=== PATIENT | male | born 1935 | race Caucasian/White ===

== ENCOUNTER 2017-07-20 13:37 | Inpatient (IN) | payer MEDICARE ==
[~2017-07-20] VITALS: Ht 180.3 cm; Wt 111.4 kg
[2017-07-20] VITALS (8 sets, daily range): BP systolic 123–207; BP diastolic 57–92; PULSE 54–99; RESP 21–30; TEMP 97.5–98.2; O2SAT 96–99
[~2017-07-20 13:37] MED LIST: ALPHALIPOIC ACID; ASPI81 PO; ATOR10 PO; B 12; COQ10; FISHOIL; FOLI800T12 PO; GLUCTAB47 PO; L CARNITINE; MECL25 PO; MSM PO; SAWPOW; TAB-TAB PO; TOPR25TA2 PO; TYLE3 PO; VITA500L4 PO; [UNRECOGNIZED DRUG - OTHER]; [UNRECOGNIZED DRUG - OTHER]
[2017-07-20] MEDS ORDERED: SODIUM CHLORIDE 0.9% FLUSH 10 ML FLUSH IVF PRN (14:00)
[2017-07-20] MEDS ORDERED: NITROGLYCERIN 2% OINT 1 GM PACKET TOPICAL ONE (14:00)
[2017-07-20] MEDS ORDERED: FUROSEMIDE 40 MG/4 ML VIAL IVP ONE (14:00)
--- NOTE | 2017-07-20 14:02 | PD ---
HPI Chief Complaint: shortness of breath Time Seen by Provider: 13:58 Travel History International Travel<30 days: No Contact w/Intl Traveler<30days: No Traveled to known affect area: No History of Present Illness HPI 82-year-old male patient with history of previous SD, CAD status post CABG, hypertension, presents to the ER today brought in by EMS for several weeks' history of worsening shortness of breath and dyspnea on exertion which worsens when he lays down. He denies any recent fevers, chest pains, or other symptoms. He initially had saturations in the high 80s when EMS got there, was in respiratory distress, and EMS to try a nebulizer on him and gave him oxygen, which improved his saturations to 99% now. He is still in significant respiratory distress. Modifying Factors: None Associated Signs & Symptoms: Dyspnea on exertion, shortness of breath worsening over the course of several weeks Risk Factors: None PFSH Past Medical History Cardiac Catheterization: Yes Cerebrovascular Accident: Yes Coronary Artery Disease: Yes Diminished Hearing: No Genitourinary: Yes (PROSTATE ENLARGEMENT) Hypertension: Yes Past Surgical History Coronary Artery Bypass Graft: Yes Social History Alcohol Use: No Tobacco Use: No Substance Use: No Allergies-Medications (Allergen,Severity, Reaction): Coded Allergies: erythromycin base (Unverified Allergy, Mild, 07/20/17) phenytoin (Unverified Allergy, Mild, 07/20/17) Reported Meds & Prescriptions Reported Meds & Active Scripts Active Reported Toprol XL (Metoprolol Succinate) 25 Mg Tab 25 Mg PO DAILY Lipitor (Atorvastatin Calcium) 10 Mg Tab 10 Mg PO HS Aspirin 81 (Aspirin) 81 Mg Tabdr 81 Mg PO DAILY Review of Systems Except as stated in HPI: all other systems reviewed are Neg Physical Exam Narrative GENERAL: Well-developed elderly white male patient currently in moderate respiratory distress per awake and oriented 3. SKIN: Focused skin assessment warm/dry. HEAD: Atraumatic. Normocephalic. EYES: Pupils equal and round. No scleral icterus. No injection or drainage. ENT: No nasal bleeding or discharge. Mucous membranes pink and moist. NECK: Trachea midline. No JVD. CARDIOVASCULAR: Regular rate and rhythm. No murmur appreciated. RESPIRATORY: Notable accessory muscle use. Decreased throughout. Breath sounds equal bilaterally. GASTROINTESTINAL: Abdomen soft, non-tender, nondistended. Hepatic and splenic margins not palpable. MUSCULOSKELETAL: No obvious deformities. No clubbing. No cyanosis. Bilateral pitting edema the legs. NEUROLOGICAL: Awake and alert. No obvious cranial nerve deficits. Motor grossly within normal limits. Normal speech. PSYCHIATRIC: Appropriate mood and affect; insight and judgment normal. Data Data Last Documented VS Vital Signs Date Time Temp Pulse Resp B/P (MAP) Pulse Ox O2 Delivery O2 Flow Rate FiO2 07/20/17 16:42 99 24 183/85 (117) 99 Nasal Cannula 2.00 07/20/17 14:06 98.2 Orders Orders Complete Blood Count With Diff (07/20/17 13:59) Comprehensive Metabolic Panel (07/20/17 13:59) B-Type Natriuretic Peptide (07/20/17 13:59) D-Dimer (07/20/17 13:59) Act Partial Throm Time (Ptt) (07/20/17 13:59) Prothrombin Time / Inr (Pt) (07/20/17 13:59) Ckmb (Isoenzyme) Profile (07/20/17 13:59) Troponin I (07/20/17 13:59) Blood Culture (07/20/17 13:59) Iv Access Insert/Monitor (07/20/17 13:59) Electrocardiogram (07/20/17 13:59) Ecg Monitoring (07/20/17 13:59) Oximetry (07/20/17 13:59) Oxygen Administration (07/20/17 13:59) Chest, Single Ap (07/20/17 13:59) Sodium Chloride 0.9% Flush (Ns Flush) (07/20/17 14:00) Furosemide Inj (Lasix Inj) (07/20/17 14:00) Nitroglycerin 2% Oint (Nitroglycerin 2% (07/20/17 14:00) CKMB (07/20/17 14:10) CKMB% (07/20/17 14:10) Ct Pulmonary Angiogram (07/20/17 15:31) Us Leg Venous Doppler Bilat (07/20/17 15:31) Admit Order (Ed Use Only) (07/20/17 17:08) Labs Laboratory Tests Test 07/20/17 14:10 White Blood Count 7.0 TH/MM3 Red Blood Count 5.24 MIL/MM3 Hemoglobin 15.5 GM/DL Hematocrit 47.5 % Mean Corpuscular Volume 90.6 FL Mean Corpuscular Hemoglobin 29.6 PG Mean Corpuscular Hemoglobin Concent 32.7 % Red Cell Distribution Width 15.0 % Platelet Count 105 TH/MM3 Mean Platelet Volume 10.0 FL Neutrophils (%) (Auto) 80.3 % Lymphocytes (%) (Auto) 11.4 % Monocytes (%) (Auto) 5.6 % Eosinophils (%) (Auto) 1.9 % Basophils (%) (Auto) 0.8 % Neutrophils # (Auto) 5.6 TH/MM3 Lymphocytes # (Auto) 0.8 TH/MM3 Monocytes # (Auto) 0.4 TH/MM3 Eosinophils # (Auto) 0.1 TH/MM3 Basophils # (Auto) 0.1 TH/MM3 CBC Comment DIFF FINAL Differential Comment Prothrombin Time 12.3 SEC Prothromb Time International Ratio 1.1 RATIO Activated Partial Thromboplast Time 26.0 SEC D-Dimer Quantitative (PE/DVT) 0.88 MG/L FEU Blood Urea Nitrogen 28 MG/DL Creatinine 1.87 MG/DL Random Glucose 106 MG/DL Total Protein 7.1 GM/DL Albumin 3.9 GM/DL Calcium Level 9.3 MG/DL Alkaline Phosphatase 29 U/L Aspartate Amino Transf (AST/SGOT) 26 U/L Alanine Aminotransferase (ALT/SGPT) 39 U/L Total Bilirubin 0.7 MG/DL Sodium Level 142 MEQ/L Potassium Level 4.7 MEQ/L Chloride Level 111 MEQ/L Carbon Dioxide Level 23.3 MEQ/L Anion Gap 8 MEQ/L Estimat Glomerular Filtration Rate 35 ML/MIN Total Creatine Kinase 103 U/L Creatine Kinase MB 3.7 NG/ML Troponin I LESS THAN 0.02 NG/ML B-Type Natriuretic Peptide 631 PG/ML MDM Medical Decision Making Medical Screen Exam Complete: Yes Emergency Medical Condition: Yes Medical Record Reviewed: Yes Interpretation(s) EKG shows normal sinus rhythm at a rate of 79 bpm with frequent PVCs. No signs of acute ST-T changes. Laboratory Tests Test 07/20/17 14:10 Platelet Count 105 TH/MM3 (150-450) Neutrophils (%) (Auto) 80.3 % (16.0-70.0) Lymphocytes # (Auto) 0.8 TH/MM3 (1.0-4.8) Prothrombin Time 12.3 SEC (9.8-11.6) D-Dimer Quantitative (PE/DVT) 0.88 MG/L FEU (0.00-0.50) Blood Urea Nitrogen 28 MG/DL (7-18) Creatinine 1.87 MG/DL (0.60-1.30) Alkaline Phosphatase 29 U/L (45-117) Chloride Level 111 MEQ/L (98-107) Estimat Glomerular Filtration Rate 35 ML/MIN (>89) Creatine Kinase MB 3.7 NG/ML (0.5-3.6) Troponin I LESS THAN 0.02 NG/ML B-Type Natriuretic Peptide 631 PG/ML (0-100) Last 24 hours Impressions Lower Extremity Ultrasound 07/20/17 1531 Signed Impressions: Service Date/Time: Thursday, July 20, 2017 15:42 - CONCLUSION: Normal examination. Diffuse subcutaneous edema. Jose Maloney MD Chest X-Ray 07/20/17 1359 Signed Impressions: Service Date/Time: Thursday, July 20, 2017 14:23 - CONCLUSION: Mild cardiomegaly status post CABG. Lungs are grossly clear. Jose Maloney MD Differential Diagnosis Short of breath, dyspnea on exertion: CHF new onset versus pneumonia versus PE versus COPD Narrative Course Exam concerning for CHF, BNP is 600 and chest x-ray and leg swelling is also concerning for CHF. Ultrasound shows no signs of DVT. Troponin is mildly elevated although patient is not having chest pain and this is likely secondary to CHF exacerbation although a non-ST elevation SD cannot be completely ruled out. He would need further evaluation by cardiology and cardiac enzyme follow- through. D-dimer is mildly elevated and CTA was ordered for further evaluation as well. Nitroglycerin and Lasix was given in the ER with some improvement in breathing. At this point, my plan would be to admit the patient for further treatment. Case was discussed with Dr. Caballero for admission. Diagnosis Primary Impression: CHF exacerbation Additional Impression: Elevated troponin Admitting Information Admitting Physician Requests: Admit Cem Guerrero MD Jul 20, 2017 14:02
[2017-07-20] MEDS ORDERED: TOPR25TA PO (14:08)
[2017-07-20] MEDS ORDERED: LIPI10TA PO (14:08)
[2017-07-20] MEDS ORDERED: ASPI1TAB57 PO (14:08)
--- NOTE | 2017-07-20 14:39 | RADRPT ---
EXAM DATE/TIME: 07/20/2017 14:23 [facility] COMPARISON: No previous studies available for comparison. INDICATIONS : Short of breath for two weeks MEDICAL HISTORY : None. SURGICAL HISTORY : CABG. ENCOUNTER: Initial ACUITY: 2 weeks PAIN SCORE: 0/10 LOCATION: Bilateral chest FINDINGS: A single view of the chest demonstrates the lungs to be symmetrically aerated without evidence of mas s, infiltrate or effusion. There are 6 intact sternal wires and clips suggesting CABG. The cardiomed iastinal contours are unremarkable except mild cardiac prominence. Osseous structures are intact. CONCLUSION: Mild cardiomegaly status post CABG. Lungs are grossly clear. Jose Maloney MD on July 20, 2017 at 14:36 Board Certified Radiologist. This report was verified electronically.
[2017-07-20 15:08] LABS: AUTOMATED NEUTROPHIL # 5.6 TH/MM3 (1.8-7.7); BASOPHIL # 0.1 TH/MM3 (0-0.2); BASOPHIL % 0.8 % (0.0-2.0); EOSINOPHIL # 0.1 TH/MM3 (0-0.4); EOSINOPHIL % 1.9 % (0.0-4.0); HEMATOCRIT 47.5 % (39.0-51.0); HEMO FLAGS DIFF FINAL; LYMPH % 11.4 % (9.0-44.0); LYMPHOCYTE # 0.8 TH/MM3 (1.0-4.8); MEAN CELL VOLUME 90.6 FL (80.0-100.0); MEAN CORPUSCULAR HEMOGLOBIN 29.6 PG (27.0-34.0); MEAN CORPUSCULAR HGB CONC 32.7 % (32.0-36.0); MONO % 5.6 % (0.0-8.0); NEUT % 80.3 % (16.0-70.0); PLATELET COUNT 105 TH/MM3 (150-450); RED BLOOD COUNT 5.24 MIL/MM3 (4.50-5.90)
[2017-07-20 15:22] LABS: INTERNATIONAL NORMALIZED RATIO 1.1 RATIO; PROTHROMBIN TIME - PATIENT 12.3 SEC (9.8-11.6)
[2017-07-20 15:25] LABS: ANION GAP 8 MEQ/L (5-15); AST (GOT) 26 U/L (15-37); BICARBONATE 23.3 MEQ/L (21.0-32.0); BLOOD UREA NITROGEN 28 MG/DL (7-18); CHLORIDE 111 MEQ/L (98-107); GLOMERULAR FILTRATION RATE 35 ML/MIN (>89); POTASSIUM 4.7 MEQ/L (3.5-5.1); SODIUM (NA) 142 MEQ/L (136-145)
[2017-07-20 15:31] LABS: ALKALINE PHOSPHATASE 29 U/L (45-117); ALT (GPT) 39 U/L (12-78); CREATINE KINASE 103 U/L (39-308); TOTAL BILIRUBIN ADULT 0.7 MG/DL (0.2-1.0)
[2017-07-20 15:43] LABS: CKMB 3.7 NG/ML (0.5-3.6)
--- NOTE | 2017-07-20 16:10 | RADRPT ---
EXAM DATE/TIME: 07/20/2017 15:42 [facility] COMPARISON: No previous studies available for comparison. INDICATIONS : Bilateral leg pain. MEDICAL HISTORY : Hypertension. CVA. Coronary artery disease. SURGICAL HISTORY : CABG. Cardiac catheterization. ENCOUNTER: Initial ACUITY: 1 day PAIN SCORE: 0/10 LOCATION: Bilateral legs. TECHNIQUE: Venous ultrasound of the left and right leg was performed from the inguinal ligament to the proximal calf. Real-time, color Doppler and spectral tracing, compression and augmentation techniques were us ed. FINDINGS: RIGHT LEG: There is normal compressibility of the deep venous system from the inguinal region to the proximal ca lf. No echogenic clot is seen in the lumen of the common femoral, femoral, popliteal, and posterior tibial veins. There is a normal response of the venous system to proximal and distal augmentation an d respiration. LEFT LEG: There is normal compressibility of the deep venous system from the inguinal region to the proximal ca lf. No echogenic clot is seen in the lumen of the common femoral, femoral, popliteal, and posterior tibial veins. There is a normal response of the venous system to proximal and distal augmentation an d respiration. CONCLUSION: Normal examination. Diffuse subcutaneous edema. Jose Maloney MD on July 20, 2017 at 16:08 Board Certified Radiologist. This report was verified electronically.
[2017-07-20] MEDS ORDERED: IODIXANOL 320 MG/ML 10 ML VIAL (for Rad CT) IVCONTRAST ONE (16:21)
--- NOTE | 2017-07-20 17:11 | RADRPT ---
EXAM DATE/TIME: 07/20/2017 16:21 [facility] COMPARISON: No previous studies available for comparison. INDICATIONS : Shortness of beath for a couple of weeks. IV CONTRAST: 50 cc Visipaque (iodixanol) IV RADIATION DOSE: 24.65 CTDIvol (mGy) MEDICAL HISTORY : Cerebrovascular disease. Cardiovascular disease Hypertension. SURGICAL HISTORY : CABG ENCOUNTER: Initial ACUITY: 2 weeks PAIN SCALE: 0/10 LOCATION: chest TECHNIQUE: Volumetric scanning of the chest was performed using a pulmonary embolism protocol MIP images were re constructed. Using automated exposure control and adjustment of the mA and/or kV according to patien t size, radiation dose was kept as low as reasonably achievable to obtain optimal diagnostic quality images. DICOM format image data is available electronically for review and comparison. Follow-up recommendations for detected pulmonary nodules are based at a minimum on nodule size and pa tient risk factors according to Fleischner Society Guidelines. FINDINGS: PULMONARY ARTERIES: No filling defects are seen in the pulmonary arteries through the segmental level. LUNGS: There is no consolidation or pneumothorax . No concerning pulmonary nodule is visualized. PLEURAE: There is no pleural thickening . Small bilateral pleural effusions. MEDIASTINUM: There is good visualization of the great vessels of the middle mediastinum. No evidence of mediastin al mass. There is hilar adenopathy on the right greater than the left of uncertain significance MUSCULOSKELETAL: Within normal limits for patient age. MISCELLANEOUS: The visualized upper abdominal organs demonstrate no acute abnormality. CONCLUSION: Small bilateral pleural effusions. Some reactive type lymph nodes within the right hilum. No evidence of pulmonary embolus with excellent opacification of the pulmonary vessels Jose Maloney MD on July 20, 2017 at 17:08 Board Certified Radiologist. This report was verified electronically.
--- NOTE | 2017-07-20 18:06 | HHI.HP ---
HPI Service [facility] Primary Care Physician No Primary Care Physician Admission Diagnosis CHF exacerbation/elevated troponin Diagnoses: Chief Complaint: Increasing shortness of breath Travel History International Travel<30 Days: No Contact w/Intl Traveler <30 Da: No Traveled to Known Affected Are: No History of Present Illness Patient is an 82-year-old male with primary medical history of HTN, history of GA, CAD, CABG 3 who came into the hospital with increasing shortness of breath. Patient states that for the past 2 weeks he has been short of breath but decided today to seek medical treatment because it's not getting better. Patient states that he has not been sleeping in his bed and that he gets dizzy laying down. With increased shortness of breath he has been sleeping in a recliner. Reports left lower extremity edema but attributes it to heel spurs. States that he is originally from [place] that he is being followed by PCP and [employer] however states that he has moved here, started to be [place] but now permanently living in here. [facility]. States all his providers have . States no change in diet or increased salt intake but admits to eating a lot. Denies use of oxygen at home. He continues to drive but states that he only walks short distances. But due to worsening shortness of breath he is unable to even move around he becomes winded. Denies pain and discomfort. Denies chest pain, palpitations, headaches, dizziness. Denies fevers, chills, n/v/d. Denies dysuria. Review of Systems Except as stated in HPI: all other systems reviewed are Neg Past Family Social History Past Medical History CAD CHF HTN GA Prostate enlargement Heel spurs, Left Pneumonia Past Surgical History CABG 3 Cardiac catheterization Appendectomy Reported Medications Reported Meds & Active Scripts Active Reported Toprol XL (Metoprolol Succinate) 25 Mg Tab 25 Mg PO DAILY Lipitor (Atorvastatin Calcium) 10 Mg Tab 10 Mg PO HS Aspirin 81 (Aspirin) 81 Mg Tabdr 81 Mg PO DAILY Allergies: Coded Allergies: erythromycin base (Unverified Allergy, Mild, 07/20/17) phenytoin (Unverified Allergy, Mild, 07/20/17) Active Ordered Medications Current Medications Medications (Trade) Dose Ordered Sig/Ivelisse Route Start Time Stop Time Status Last Admin (NS Flush) 2 ml UNSCH PRN IVF 07/20/17 14:00 Family History Father of liver disease, alcohol use Social History [place] Occasional alcohol use Former smoker, 1 pack per day 25 years Denies illicit drug use Physical Exam Vital Signs Vital Signs Date Time Temp Pulse Resp B/P (MAP) Pulse Ox O2 Delivery O2 Flow Rate FiO2 07/20/17 16:42 99 24 183/85 (117) 99 Nasal Cannula 2.00 07/20/17 15:05 191/88 (122) 07/20/17 14:11 Nasal Cannula 1.00 07/20/17 14:09 99 Nasal Cannula 2.00 07/20/17 14:06 96 Room Air 07/20/17 14:06 98.2 85 30 207/92 (130) 96 Physical Exam GENERAL: This is a well-nourished, well-developed patient, in no apparent distress. SKIN: Bilateral lower extremity stasis dermatitis. Cool and dry. HEAD: Atraumatic. Normocephalic. No temporal or scalp tenderness. EYES: Pupils equal round and reactive. Extraocular motions intact. No scleral icterus. No injection or drainage. ENT: Nose without bleeding. Throat without erythema. Uvula midline. Airway patent. NECK: Trachea midline. CARDIOVASCULAR: Irregular rate, 2/6 murmurs No gallops, or rubs. RESPIRATORY: Left base crackles. GASTROINTESTINAL: Abdomen soft, non-tender, protuberant. Bowel sounds active 4. No guarding. MUSCULOSKELETAL: Extremities without clubbing, cyanosis. LLE +2 edema, RLE trace edema. No joint tenderness, effusion, or edema noted. No calf tenderness. NEUROLOGICAL: Awake and alert. Cranial nerves II through XII intact. Motor and sensory grossly within normal limits. Normal speech. Laboratory Laboratory Tests Test 07/20/17 14:10 White Blood Count 7.0 Red Blood Count 5.24 Hemoglobin 15.5 Hematocrit 47.5 Mean Corpuscular Volume 90.6 Mean Corpuscular Hemoglobin 29.6 Mean Corpuscular Hemoglobin Concent 32.7 Red Cell Distribution Width 15.0 Platelet Count 105 Mean Platelet Volume 10.0 Neutrophils (%) (Auto) 80.3 Lymphocytes (%) (Auto) 11.4 Monocytes (%) (Auto) 5.6 Eosinophils (%) (Auto) 1.9 Basophils (%) (Auto) 0.8 Neutrophils # (Auto) 5.6 Lymphocytes # (Auto) 0.8 Monocytes # (Auto) 0.4 Eosinophils # (Auto) 0.1 Basophils # (Auto) 0.1 CBC Comment DIFF FINAL Differential Comment Prothrombin Time 12.3 Prothromb Time International Ratio 1.1 Activated Partial Thromboplast Time 26.0 D-Dimer Quantitative (PE/DVT) 0.88 Blood Urea Nitrogen 28 Creatinine 1.87 Random Glucose 106 Total Protein 7.1 Albumin 3.9 Calcium Level 9.3 Alkaline Phosphatase 29 Aspartate Amino Transf (AST/SGOT) 26 Alanine Aminotransferase (ALT/SGPT) 39 Total Bilirubin 0.7 Sodium Level 142 Potassium Level 4.7 Chloride Level 111 Carbon Dioxide Level 23.3 Anion Gap 8 Estimat Glomerular Filtration Rate 35 Total Creatine Kinase 103 Creatine Kinase MB 3.7 Troponin I LESS THAN 0.02 B-Type Natriuretic Peptide 631 Date/Time Source Procedure Growth Status 07/20/17 14:10 Blood Peripheral Aerobic Blood Culture Pending Received 07/20/17 14:10 Blood Peripheral Anaerobic Blood Culture Pending Received Result Diagram: 07/20/17 1410 07/20/17 1410 Imaging Last Impressions Lower Extremity Ultrasound 07/20/17 1531 Signed Impressions: Service Date/Time: Thursday, July 20, 2017 15:42 - CONCLUSION: Normal examination. Diffuse subcutaneous edema. Jose Maloney MD CT Angiography 07/20/17 1531 Signed Impressions: Service Date/Time: Thursday, July 20, 2017 16:21 - CONCLUSION: Small bilateral pleural effusions. Some reactive type lymph nodes within the right hilum. No evidence of pulmonary embolus with excellent opacification of the pulmonary vessels Jose Maloney MD Chest X-Ray 07/20/17 1353 Signed Impressions: Service Date/Time: Thursday, July 20, 2017 14:23 - CONCLUSION: Mild cardiomegaly status post CABG. Lungs are grossly clear. Jose Maloney MD Capgiovannii VTE Risk Assessment Caprini VTE Risk Assessment: Mod/High Risk (score >= 2) Caprini Risk Assessment Model Point Value = 1 Point Value = 2 Point Value = 3 Point Value = 5 Age 41-60 Minor surgery BMI > 25 kg/m2 Swollen legs Varicose veins or History of unexplained or recurrent spontaneous Oral contraceptives or hormone replacement Sepsis (< 1 month) Serious lung disease, including pneumonia (< 1 month) Abnormal pulmonary function Acute myocardial infarction Congestive heart failure (< 1 month) History of inflammatory bowel disease Medical patient at bed rest Age 61-74 Arthroscopic surgery Major open surgery (> 45 min) Laparoscopic surgery (> 45 min) Malignancy Confined to bed (> 72 hours) Immobilizing plaster cast Central venous access Age >= 75 History of VTE Family history of VTE Factor V Leiden Prothrombin [id number] Lupus anticoagulant Anticardiolipin antibodies Elevated serum homocysteine Heparin-induced thrombocytopenia Other congenital or acquired thrombophilia Stroke (< 1 month) Elective arthroplasty Hip, pelvis, or leg fracture Acute spinal cord injury (< 1 month) Prophylaxis Regimen Total Risk Factor Score Risk Level Prophylaxis Regimen 0-1 Low Early ambulation 2 Moderate Order ONE of the following: *Sequential Compression Device (SCD) *Heparin 5000 units SQ BID 3-4 Higher Order ONE of the following medications: *Heparin 5000 units SQ TID *Enoxaparin/Lovenox 40 mg SQ daily (WT < 150 kg, CrCl > 30 mL/min) *Enoxaparin/Lovenox 30 mg SQ daily (WT < 150 kg, CrCl > 10-29 mL/min) *Enoxaparin/Lovenox 30 mg SQ BID (WT < 150 kg, CrCl > 30 mL/min) AND/OR *Sequential Compression Device (SCD) 5 or more Highest Order ONE of the following medications: *Heparin 5000 units SQ TID (Preferred with Epidurals) *Enoxaparin/Lovenox 40 mg SQ daily (WT < 150 kg, CrCl > 30 mL/min) *Enoxaparin/Lovenox 30 mg SQ daily (WT < 150 kg, CrCl > 10-29 mL/min) *Enoxaparin/Lovenox 30 mg SQ BID (WT < 150 kg, CrCl > 30 mL/min) AND *Sequential Compression Device (SCD) Assessment and Plan Problem List: (1) CHF exacerbation ICD Code: I50.9 - Heart failure, unspecified Status: Acute (2) Elevated troponin ICD Code: R74.8 - Abnormal levels of other serum enzymes Status: Acute Assessment and Plan Patient is an 82-year-old male with primary medical history of HTN, history of GA, CAD, CABG 3 who came into the hospital with increasing shortness of breath. CHF exacerbation, acute CHF unknown type - Chest x-ray showed mild cardiomegaly status post CABG. Lungs are grossly clear - BNP 631 - CTA showed small bilateral pleural effusions. Some reactive type lymph nodes within the right ileum. No evidence of pulmonary embolus with excellent opacification of the pulmonary vessels - Lasix 40 mg IV, continue IV Lasix - Doppler ultrasound showed negative DVT - Check labs tomorrow - Monitor I's and O's. Fluid restriction 1500ml Acute kidney injury possibly chronic kidney disease - Creatinine 1.87 - Avoid nephrotoxins - Monitor renal indices HTN CAD History of CABG - EKG shows with PVCs, no ST elevation - Troponin less than 0.02, CK-MB 3.7 - Resume home medications aspirin 81 mg daily, metoprolol 25 mg daily, atorvastatin 10 mg daily - Monitor BP trend DVT prop SCDs Code Status Full Code Discussed Condition With Patient, nursing, Dr. Caballero Physician Certification 2 Midnight Certification Type: Admission for Inpatient Services Order for Inpatient Services The services are ordered in accordance with Medicare regulations or non- Medicare payer requirements, as applicable. In the case of services not specified as inpatient-only, they are appropriately provided as inpatient services in accordance with the 2-midnight benchmark. Estimated LOS (days): 2 days is the estimated time the patient will need to remain in the hospital, assuming treatment plan goals are met and no additional complications. Post-Hospital Plan: Home Notes: The exam, history, and the medical decision-making described in the above note were completed with the assistance of the mid-level provider. I reviewed and agree with the findings presented. I attest that I had a [id number] encounter with the patient on the same day, and personally performed and documented my assessment and findings in the medical record. Patient complaint of shortness of breathing for the past 2 weeks. He stated that this was gradual. He does have a history of see CHF and coronary disease. he is not on home oxygen. Denied any increase in salt intake. General in no acute distress Respiratory left basilar crackles. Cardiovascular irregular rate. 2/6 systolic heart murmur. Extremity left lower extremity +1 pitting edema right lower extremity trace edema A/P Rest heart failure with hypoxia CHF exacerbation BNP elevated CTA shows some pleural effusion no PE Will diuresis with IV diuretics Strict ins and outs. Adjust accordingly based on clinical and thumbs and output. Mary Ellen Villarreal Jul 20, 2017 18:06 Ewa Caballero MD Jul 20, 2017 19:07
[2017-07-20] MEDS ORDERED: SENNOSIDES 8.6 MG TAB PO PRN (18:15)
[2017-07-20] MEDS ORDERED: ONDANSETRON HCL 4 MG/2 ML VIAL IVP PRN (18:15)
[2017-07-20] MEDS ORDERED: NALOXONE HCL 0.4 MG/ML AMP IV PUSH PRN (18:15)
[2017-07-20] MEDS ORDERED: MAGNESIUM HYDROXIDE SUSP 30 ML CUP PO PRN (18:15)
[2017-07-20] MEDS: ATORVASTATIN 10 MG TAB PO SCH (20:39)
[2017-07-20] MEDS: DOCUSATE SODIUM 50 MG/SENNA 8.6 MG TAB PO SCH (20:39)
[2017-07-21] VITALS (9 sets, daily range): BP systolic 128–157; BP diastolic 65–94; PULSE 56–93; RESP 20–22; TEMP 97.2–98.4; O2SAT 92–98
[2017-07-21 07:20] LABS: AUTOMATED NEUTROPHIL # 5.1 TH/MM3 (1.8-7.7); BASOPHIL # 0.1 TH/MM3 (0-0.2); BASOPHIL % 0.9 % (0.0-2.0); EOSINOPHIL # 0.4 TH/MM3 (0-0.4); HEMATOCRIT 45.7 % (39.0-51.0); LYMPH % 13.5 % (9.0-44.0); MEAN CELL VOLUME 90.8 FL (80.0-100.0); MEAN CORPUSCULAR HGB CONC 33.1 % (32.0-36.0); MONO % 8.6 % (0.0-8.0); PLATELET COUNT 97 TH/MM3 (150-450); RED BLOOD COUNT 5.04 MIL/MM3 (4.50-5.90); RED CELL DISTRIBUTION WIDTH 15.1 % (11.6-17.2); WHITE BLOOD COUNT 7.1 TH/MM3 (4.0-11.0)
[2017-07-21 07:26] LABS: HEMO FLAGS AUTO DIFF
[2017-07-21 07:48] LABS: ALT (GPT) 35 U/L (12-78); ANION GAP 7 MEQ/L (5-15); AST (GOT) 17 U/L (15-37); BICARBONATE 25.6 MEQ/L (21.0-32.0); BLOOD UREA NITROGEN 27 MG/DL (7-18); CHLORIDE 110 MEQ/L (98-107); GLOMERULAR FILTRATION RATE 39 ML/MIN (>89); POTASSIUM 4.1 MEQ/L (3.5-5.1); SODIUM (NA) 143 MEQ/L (136-145)
[2017-07-21 07:50] LABS: ALKALINE PHOSPHATASE 29 U/L (45-117); TOTAL BILIRUBIN ADULT 1.3 MG/DL (0.2-1.0)
[2017-07-21 08:51] LABS: PLATELET ESTIMATE SMEAR LOW (NORMAL); PLATELET MORPHOLOGY NORMAL (NORMAL); SCAN/DIFF AUTO DIFF CONFIRMED
[2017-07-21] MEDS: FUROSEMIDE 40 MG/4 ML VIAL IV PUSH SCH (09:32)
[2017-07-21] MEDS: METOPROLOL SUCCINATE 25 MG EXTENDED RELEASE TAB PO SCH (09:33)
[2017-07-21] MEDS: DOCUSATE SODIUM 50 MG/SENNA 8.6 MG TAB PO SCH ×2 (09:33→21:25)
[2017-07-21] MEDS: ASPIRIN EC 81 MG TABEC PO SCH (09:33)
[2017-07-21] MEDS: HEPARIN SODIUM - SQ 10,000 UNITS/ML VIAL SQ SCH ×2 (09:34→21:26)
--- NOTE | 2017-07-21 10:41 | EKG ---
Date Performed: 07/20/2017 Time Performed: 15:02:16 PTAGE: 82 years EKG: Sinus rhythm WITH FREQUENT VENTRICULAR PREMATURE COMPLEXES POSSIBLE LEFT ATRIAL ENLARGEMENT POSSIBLE INFERIOR OLESYA CARDIAL INFARCTION ABNORMAL RHYTHM ECG PREVIOUS TRACING : 09/21/2007 13.07 DOCTOR: Barak Burns Interpretating Date/Time 07/21/2017 10:40:15
--- NOTE | 2017-07-21 15:09 | HHI.PR ---
Subjective Remarks Follow-up CHF. Still with significant BOB. Currently on 2 L nasal cannula. Discussed with RN Objective Vitals Vital Signs Date Time Temp Pulse Resp B/P (MAP) Pulse Ox O2 Delivery O2 Flow Rate FiO2 07/21/17 12:00 98.0 90 20 148/89 (108) 92 07/21/17 09:14 94 Nasal Cannula 2.00 07/21/17 08:00 97.2 83 20 157/73 (101) 93 07/21/17 04:00 97.9 81 22 151/94 (113) 97 07/21/17 00:00 97.2 56 20 128/65 (86) 93 07/20/17 23:00 Nasal Cannula 2.00 07/20/17 22:01 98 Nasal Cannula 2.00 07/20/17 21:00 88 07/20/17 20:00 97.5 54 22 162/79 (106) 98 07/20/17 19:31 83 24 123/57 (79) 97 Nasal Cannula 2.00 07/20/17 17:47 87 21 176/89 (118) 96 Nasal Cannula 2.00 07/20/17 16:42 99 24 183/85 (117) 99 Nasal Cannula 2.00 I/O 07/20/17 07/20/17 07/20/17 07/21/17 07/21/17 07/21/17 07:00 15:00 23:00 07:00 15:00 23:00 Intake Total 360 ml Output Total 250 ml 700 ml Balance -250 ml -340 ml Intake Oral 360 ml Output Urine Total 250 ml 700 ml # Voids 4 Result Diagram: 07/21/17 0640 07/21/17 0620 Imaging Last Impressions Lower Extremity Ultrasound 07/20/17 1531 Signed Impressions: Service Date/Time: Thursday, July 20, 2017 15:42 - CONCLUSION: Normal examination. Diffuse subcutaneous edema. Jose Maloney MD CT Angiography 07/20/17 153 Signed Impressions: Service Date/Time: Thursday, July 20, 2017 16:21 - CONCLUSION: Small bilateral pleural effusions. Some reactive type lymph nodes within the right hilum. No evidence of pulmonary embolus with excellent opacification of the pulmonary vessels Jose Maloney MD Chest X-Ray 07/20/17 1359 Signed Impressions: Service Date/Time: Thursday, July 20, 2017 14:23 - CONCLUSION: Mild cardiomegaly status post CABG. Lungs are grossly clear. Jose Maloney MD Objective Remarks GENERAL: This is a well-nourished, well-developed patient, in no apparent distress. SKIN: Bilateral lower extremity stasis dermatitis. Cool and dry. CARDIOVASCULAR: Irregular rate, 2/6 murmurs No gallops, or rubs. RESPIRATORY: Left base crackles. GASTROINTESTINAL: Abdomen soft, non-tender, protuberant. Bowel sounds active 4. No guarding. MUSCULOSKELETAL: Extremities without clubbing, cyanosis. LLE +2 edema, RLE trace edema. No joint tenderness, effusion, or edema noted. No calf tenderness. NEUROLOGICAL: Awake and alert. Cranial nerves II through XII intact. Motor and sensory grossly within normal limits. Normal speech. Procedures None A/P Problem List: (1) CHF exacerbation ICD Code: I50.9 - Heart failure, unspecified Status: Acute (2) Elevated troponin ICD Code: R74.8 - Abnormal levels of other serum enzymes Status: Acute Assessment and Plan Patient is an 82-year-old male with primary medical history of HTN, history of CO, CAD, CABG 3 who came into the hospital with increasing shortness of breath. CHF exacerbation, acute. Stable CHF unknown type - Chest x-ray showed mild cardiomegaly status post CABG. Lungs are grossly clear - BNP 631 - CTA showed small bilateral pleural effusions. Some reactive type lymph nodes within the right ileum. No evidence of pulmonary embolus with excellent opacification of the pulmonary vessels - Lasix 40 mg IV - Doppler ultrasound showed negative DVT - Monitor I's and O's. Fluid restriction 1500ml Acute kidney injury possibly chronic kidney disease - Creatinine improving - Avoid nephrotoxins - Monitor renal indices HTN CAD History of CABG - EKG shows with PVCs, no ST elevation - Troponin less than 0.02, CK-MB 3.7 - Resume home medications aspirin 81 mg daily, metoprolol 25 mg daily, atorvastatin 10 mg daily - Monitor BP trend DVT prop SCDs and subcutaneous heparin Discharge Planning Not ready for discharge Miguel Parkinson MD Jul 21, 2017 15:09
[2017-07-21] MEDS: ATORVASTATIN 10 MG TAB PO SCH (21:26)
[2017-07-22] VITALS (8 sets, daily range): BP systolic 113–173; BP diastolic 74–96; PULSE 68–97; RESP 18–20; TEMP 97.7–98.6; O2SAT 94–99
[2017-07-22] MEDS: FUROSEMIDE 40 MG/4 ML VIAL IV PUSH SCH (08:47)
[2017-07-22] MEDS: ASPIRIN EC 81 MG TABEC PO SCH (08:47)
[2017-07-22] MEDS: METOPROLOL SUCCINATE 25 MG EXTENDED RELEASE TAB PO SCH (08:48)
[2017-07-22] MEDS: HEPARIN SODIUM - SQ 10,000 UNITS/ML VIAL SQ SCH ×2 (08:48→20:42)
[2017-07-22] MEDS: DOCUSATE SODIUM 50 MG/SENNA 8.6 MG TAB PO SCH ×2 (08:48→20:41)
--- NOTE | 2017-07-22 09:08 | HHI.DCPOC ---
Discharge Care Plan Diagnosis: (1) CHF exacerbation Your Health Problems Are: Difficulty with ADL Exercise Tolerance Goals to Promote Your Health * To prevent worsening of your condition and complications * To maintain your health at the optimal level Directions to Meet Your Goals Take your medications as prescribed Follow your dietary instruction Follow activity as directed Keep your appointments as scheduled Take your immunizations and boosters as scheduled If your symptoms worsen call your PCP, if no PCP go to Urgent Care Center or Emergency Room Smoking is Dangerous to Your Health. Avoid second hand smoke Call the 24-hour hour crisis hotline for domestic abuse at Miguel Parkinson MD Jul 22, 2017 09:08
[2017-07-22 09:09] LABS: AUTOMATED NEUTROPHIL # 5.2 TH/MM3 (1.8-7.7); BASOPHIL % 0.7 % (0.0-2.0); EOSINOPHIL # 0.4 TH/MM3 (0-0.4); EOSINOPHIL % 5.3 % (0.0-4.0); HEMATOCRIT 47.5 % (39.0-51.0); HEMO FLAGS DIFF FINAL; LYMPH % 10.3 % (9.0-44.0); LYMPHOCYTE # 0.7 TH/MM3 (1.0-4.8); MEAN CELL VOLUME 90.4 FL (80.0-100.0); MEAN CORPUSCULAR HEMOGLOBIN 30.2 PG (27.0-34.0); MEAN CORPUSCULAR HGB CONC 33.4 % (32.0-36.0); MONO % 7.2 % (0.0-8.0); NEUT % 76.5 % (16.0-70.0); PLATELET COUNT 112 TH/MM3 (150-450); RED BLOOD COUNT 5.26 MIL/MM3 (4.50-5.90); RED CELL DISTRIBUTION WIDTH 14.6 % (11.6-17.2); WHITE BLOOD COUNT 6.8 TH/MM3 (4.0-11.0)
--- NOTE | 2017-07-22 09:09 | HHI.FF ---
Face to Face Verification Diagnosis: (1) CHF exacerbation Physical Therapy Order: Evaluate and Treat, Improve ambulation, Strength and gait training Home Health Nursing Order: Medical education Signs/symptoms of disease process CHF education Oxygen administration education Medication education-adverse effect Nursing assessment with vital signs I have seen patient Cleveland Maier on 07/22/17. My clinical findings support the need for the requested home health care services because: Patient has SOB I certify that my clinical findings support that this patient is homebound because: Poor cardiac reserve Miguel Parkinson MD Jul 22, 2017 09:09
[2017-07-22 09:30] LABS: BICARBONATE 30.2 MEQ/L (21.0-32.0); MAGNESIUM 1.9 MG/DL (1.5-2.5)
[2017-07-22] MEDS: LACTIC ACID (AMMONIUM LACTATE) 12% LOTION 225 GM BTL TOPICAL SCH ×2 (13:12→20:42)
[2017-07-22] MEDS ORDERED: COEN400C (13:34)
[2017-07-22] MEDS ORDERED: METO1TAB9 PO (13:34)
[2017-07-22] MEDS ORDERED: LISI-515 PO (13:34)
[2017-07-22] MEDS ORDERED: NAPR250T4 PO (13:34)
[2017-07-22] MEDS ORDERED: ASPI-516 CHEW (13:34)
--- NOTE | 2017-07-22 14:00 | HHI.PR ---
Subjective Remarks Follow-up heart failure. He is feeling better currently on room air. Discussed with RT and RN Objective Vitals Vital Signs Date Time Temp Pulse Resp B/P (MAP) Pulse Ox O2 Delivery O2 Flow Rate FiO2 07/22/17 12:00 97.7 68 18 113/78 (90) 96 07/22/17 09:31 99 Nasal Cannula 2.00 07/22/17 08:00 98.3 75 18 173/76 (108) 99 07/22/17 04:49 98.4 97 19 152/96 (114) 97 07/22/17 04:00 Nasal Cannula 2.00 07/22/17 00:12 97.8 82 20 154/89 (110) 96 07/22/17 00:00 Nasal Cannula 2.00 07/21/17 21:14 98.2 84 20 135/68 (90) 98 07/21/17 20:00 68 07/21/17 20:00 Nasal Cannula 2.00 07/21/17 18:00 07/21/17 17:21 96 Nasal Cannula 2.00 07/21/17 16:00 98.4 83 20 129/75 (93) 96 I/O 07/21/17 07/21/17 07/21/17 07/22/17 07/22/17 07/22/17 07:00 15:00 23:00 07:00 15:00 23:00 Intake Total 360 ml 480 ml 480 ml 480 ml Output Total 700 ml 850 ml 800 ml 1800 ml 200 ml Balance -340 ml -850 ml -320 ml -1320 ml 280 ml Intake Oral 360 ml 480 ml 480 ml 480 ml Output Urine Total 700 ml 850 ml 800 ml 1800 ml 200 ml # Voids 2 # Bowel Movements 1 Result Diagram: 07/22/1715 07/22/1715 Imaging Last Impressions Lower Extremity Ultrasound 07/20/171530 Signed Impressions: Service Date/Time: Thursday, July 20, 2017 15:42 - CONCLUSION: Normal examination. Diffuse subcutaneous edema. Jose Maloney MD CT Angiography 07/20/171530 Signed Impressions: Service Date/Time: Thursday, July 20, 2017 16:21 - CONCLUSION: Small bilateral pleural effusions. Some reactive type lymph nodes within the right hilum. No evidence of pulmonary embolus with excellent opacification of the pulmonary vessels Jose Maloney MD Chest X-Ray 07/20/17 5168 Signed Impressions: Service Date/Time: Thursday, July 20, 2017 14:23 - CONCLUSION: Mild cardiomegaly status post CABG. Lungs are grossly clear. Jose Maloney MD Objective Remarks GENERAL: This is a well-nourished, well-developed patient, in no apparent distress. SKIN: Bilateral lower extremity stasis dermatitis. Cool and dry. CARDIOVASCULAR: Irregular rate, 2/6 murmurs No gallops, or rubs. RESPIRATORY: Decreased breath sounds GASTROINTESTINAL: Abdomen soft, non-tender, protuberant. Bowel sounds active 4. No guarding. MUSCULOSKELETAL: Extremities without clubbing, cyanosis. LLE +2 edema, RLE trace edema. No joint tenderness, effusion, or edema noted. No calf tenderness. NEUROLOGICAL: Awake and alert. Cranial nerves II through XII intact. Motor and sensory grossly within normal limits. Normal speech. No significant change in PE from previous Procedures None A/P Problem List: (1) CHF exacerbation ICD Code: I50.9 - Heart failure, unspecified Status: Acute (2) Elevated troponin ICD Code: R74.8 - Abnormal levels of other serum enzymes Status: Acute Assessment and Plan Patient is an 82-year-old male with primary medical history of HTN, history of ND, CAD, CABG 3 who came into the hospital with increasing shortness of breath. CHF exacerbation, acute. Improving with good diuresis CHF unknown type - Chest x-ray showed mild cardiomegaly status post CABG. - BNP 631 - CTA showed small bilateral pleural effusions. Some reactive type lymph nodes within the right ileum. No evidence of pulmonary embolus with excellent opacification of the pulmonary vessels - Lasix 40 mg IV - Doppler ultrasound showed negative DVT - Monitor I's and O's. Fluid restriction 1500ml -Follow up echocardiogram. Consider restarting MERARI inhibitor if renal function improves Acute kidney injury possibly chronic kidney disease - Creatinine slightly up today - Avoid nephrotoxins - Monitor renal indices repeat BMP in the morning HTN CAD History of CABG - EKG shows with PVCs, no ST elevation - Troponin less than 0.02, CK-MB 3.7 - Resume home medications aspirin 81 mg daily, metoprolol 25 mg daily, atorvastatin 10 mg daily - Monitor BP trend DVT prop SCDs and subcutaneous heparin Discharge Planning Not ready for discharge Miguel Parkinson MD Jul 22, 2017 14:00
[2017-07-22] MEDS: ATORVASTATIN 10 MG TAB PO SCH (20:41)
[2017-07-23] VITALS (7 sets, daily range): BP systolic 91–150; BP diastolic 57–82; PULSE 72–92; RESP 16–20; TEMP 97.5–98.2; O2SAT 93–97
[2017-07-23 08:29] LABS: AUTOMATED NEUTROPHIL # 4.2 TH/MM3 (1.8-7.7); BASOPHIL # 0.1 TH/MM3 (0-0.2); EOSINOPHIL # 0.5 TH/MM3 (0-0.4); EOSINOPHIL % 7.3 % (0.0-4.0); HEMO FLAGS DIFF FINAL; LYMPH % 15.5 % (9.0-44.0); MEAN CELL VOLUME 90.2 FL (80.0-100.0); MEAN CORPUSCULAR HGB CONC 33.2 % (32.0-36.0); MONO % 8.1 % (0.0-8.0); NEUT % 68.1 % (16.0-70.0); PLATELET COUNT 105 TH/MM3 (150-450); RED BLOOD COUNT 4.99 MIL/MM3 (4.50-5.90); RED CELL DISTRIBUTION WIDTH 14.8 % (11.6-17.2); WHITE BLOOD COUNT 6.2 TH/MM3 (4.0-11.0)
[2017-07-23 08:34] LABS: BICARBONATE 27.3 MEQ/L (21.0-32.0); POTASSIUM 3.6 MEQ/L (3.5-5.1)
[2017-07-23] MEDS: DOCUSATE SODIUM 50 MG/SENNA 8.6 MG TAB PO SCH ×2 (09:00→20:14)
[2017-07-23] MEDS: LACTIC ACID (AMMONIUM LACTATE) 12% LOTION 225 GM BTL TOPICAL SCH ×2 (09:00→20:14)
[2017-07-23] MEDS: METOPROLOL SUCCINATE 25 MG EXTENDED RELEASE TAB PO SCH (09:55)
[2017-07-23] MEDS: ASPIRIN EC 81 MG TABEC PO SCH (09:55)
[2017-07-23] MEDS: FUROSEMIDE 40 MG/4 ML VIAL IV PUSH SCH (09:56)
[2017-07-23] MEDS: HEPARIN SODIUM - SQ 10,000 UNITS/ML VIAL SQ SCH ×2 (09:58→20:14)
[2017-07-23] MEDS ORDERED: FURO1TAB60 PO (11:50)
--- NOTE | 2017-07-23 11:52 | HHI.PR ---
Subjective Remarks F/u HF. Doing better tolerating RA dw RN Objective Vitals Vital Signs Date Time Temp Pulse Resp B/P (MAP) Pulse Ox O2 Delivery O2 Flow Rate FiO2 07/23/17 08:00 98.1 74 20 150/71 (97) 93 07/23/17 04:00 98.2 79 16 129/57 (81) 94 07/23/17 04:00 Room Air 07/23/17 00:00 97.8 92 18 148/71 (96) 96 07/23/17 00:00 Room Air 07/22/17 20:00 98.2 85 20 149/91 (110) 94 07/22/17 20:00 88 07/22/17 20:00 Room Air 07/22/17 19:07 95 Nasal Cannula 2.00 07/22/17 16:00 98.6 91 18 131/74 (93) 95 07/22/17 14:58 Room Air 07/22/17 12:00 97.7 68 18 113/78 (90) 96 I/O 07/22/17 07/22/17 07/22/17 07/23/17 07/23/17 07/23/17 07:00 15:00 23:00 07:00 15:00 23:00 Intake Total 480 ml 480 ml 720 ml Output Total 1800 ml 200 ml 400 ml 400 ml 150 ml Balance -1320 ml 280 ml 320 ml -400 ml -150 ml Intake Oral 480 ml 480 ml 720 ml Output Urine Total 1800 ml 200 ml 400 ml 400 ml 150 ml # Bowel Movements 0 Result Diagram: 07/23/17 0707 07/23/17 0707 Imaging Last Impressions Lower Extremity Ultrasound 07/20/17 1531 Signed Impressions: Service Date/Time: Thursday, July 20, 2017 15:42 - CONCLUSION: Normal examination. Diffuse subcutaneous edema. Jose Maloney MD CT Angiography 07/20/17 1531 Signed Impressions: Service Date/Time: Thursday, July 20, 2017 16:21 - CONCLUSION: Small bilateral pleural effusions. Some reactive type lymph nodes within the right hilum. No evidence of pulmonary embolus with excellent opacification of the pulmonary vessels Jose Maloney MD Chest X-Ray 07/20/17 1057 Signed Impressions: Service Date/Time: Thursday, July 20, 2017 14:23 - CONCLUSION: Mild cardiomegaly status post CABG. Lungs are grossly clear. Jose Maloney MD Objective Remarks GENERAL: This is a well-nourished, well-developed patient, in no apparent distress. SKIN: Bilateral lower extremity stasis dermatitis. Cool and dry. CARDIOVASCULAR: Irregular rate, 2/6 murmurs No gallops, or rubs. RESPIRATORY: Decreased breath sounds GASTROINTESTINAL: Abdomen soft, non-tender, protuberant. Bowel sounds active 4. No guarding. MUSCULOSKELETAL: Extremities without clubbing, cyanosis. LLE +2 edema, RLE trace edema. No joint tenderness, effusion, or edema noted. No calf tenderness. NEUROLOGICAL: Awake and alert. Cranial nerves II through XII intact. Motor and sensory grossly within normal limits. Normal speech. Procedures None A/P Problem List: (1) CHF exacerbation ICD Code: I50.9 - Heart failure, unspecified Status: Acute (2) Elevated troponin ICD Code: R74.8 - Abnormal levels of other serum enzymes Status: Acute Assessment and Plan Patient is an 82-year-old male with primary medical history of HTN, history of [place], CAD, CABG 3 who came into the hospital with increasing shortness of breath. CHF exacerbation, acute. Improving with good diuresis CHF unknown type - Chest x-ray showed mild cardiomegaly status post CABG. - BNP 631 - CTA showed small bilateral pleural effusions. Some reactive type lymph nodes within the right ileum. No evidence of pulmonary embolus with excellent opacification of the pulmonary vessels - Lasix 40 mg QD - Doppler ultrasound showed negative DVT - Monitor I's and O's. Fluid restriction 1500ml - Follow up echocardiogram. Consider restarting MERARI inhibitor if renal function improves Acute kidney injury possibly chronic kidney disease - Creatinine slightly better today - Avoid nephrotoxins - Monitor renal indices repeat BMP in the morning HTN CAD History of CABG - EKG shows with PVCs, no ST elevation - Troponin less than 0.02, CK-MB 3.7 - Resume home medications aspirin 81 mg daily, metoprolol 25 mg daily, atorvastatin 10 mg daily - Monitor BP trend DVT prop SCDs and subcutaneous heparin Discharge Planning Dc today pending echo Miguel Parkinson MD Jul 23, 2017 11:52
[2017-07-23] MEDS: ACETAMINOPHEN 325 MG TAB PO PRN (15:12)
[2017-07-23] MEDS: ATORVASTATIN 10 MG TAB PO SCH (20:14)
[2017-07-24] VITALS: BP 162/90; PULSE 77; RESP 21; TEMP 97.4; O2SAT 94
[2017-07-24 04:00] VITALS: BP 156/83; PULSE 70; RESP 18; TEMP 97.7; O2SAT 94
[2017-07-24 08:00] VITALS: BP 179/94; PULSE 81; PULSE 86; RESP 20; TEMP 97.7; O2SAT 97
[2017-07-24] MEDS: ASPIRIN EC 81 MG TABEC PO SCH (08:38)
[2017-07-24] MEDS: METOPROLOL SUCCINATE 25 MG EXTENDED RELEASE TAB PO SCH (08:38)
[2017-07-24] MEDS: FUROSEMIDE 40 MG/4 ML VIAL IV PUSH SCH (08:41)
[2017-07-24] MEDS: HEPARIN SODIUM - SQ 10,000 UNITS/ML VIAL SQ SCH (08:43)
[2017-07-24] MEDS: ACETAMINOPHEN 325 MG TAB PO PRN (08:45)
--- NOTE | 2017-07-24 10:18 | HHI.DS ---
Discharge Summary Admission Date Jul 20, 2017 at 17:09 Discharge Date: Jul 24, 2017 Admitting Diagnosis CHF exacerbation/elevated troponin (1) CHF exacerbation ICD Code: I50.9 - Heart failure, unspecified Diagnosis: Principal Status: Acute (2) Elevated troponin ICD Code: R74.8 - Abnormal levels of other serum enzymes Diagnosis: Principal Status: Acute Procedures None Brief History - From Admission Patient is an 82-year-old male with primary medical history of HTN, history of CA, CAD, CABG 3 who came into the hospital with increasing shortness of breath. Patient states that for the past 2 weeks he has been short of breath but decided today to seek medical treatment because it's not getting better. Patient states that he has not been sleeping in his bed and that he gets dizzy laying down. With increased shortness of breath he has been sleeping in a recliner. Reports left lower extremity edema but attributes it to heel spurs. States that he is originally from [place] that he is being followed by PCP and Geospatial Technologist however states that he has moved here, started to be [place] but now permanently living in here. [facility]. States all his providers have . States no change in diet or increased salt intake but admits to eating a lot. Denies use of oxygen at home. He continues to drive but states that he only walks short distances. But due to worsening shortness of breath he is unable to even move around he becomes winded. Denies pain and discomfort. Denies chest pain, palpitations, headaches, dizziness. Denies fevers, chills, n/v/d. Denies dysuria. CBC/BMP: 07/23/17 0707 07/23/17 0707 Significant Findings Laboratory Tests Test 07/22/17 08:15 07/23/17 07:07 Platelet Count 112 TH/MM3 (150-450) 105 TH/MM3 (150-450) Neutrophils (%) (Auto) 76.5 % (16.0-70.0) Eosinophils (%) (Auto) 5.3 % (0.0-4.0) 7.3 % (0.0-4.0) Lymphocytes # (Auto) 0.7 TH/MM3 (1.0-4.8) Blood Urea Nitrogen 27 MG/DL (7-18) 32 MG/DL (7-18) Creatinine 1.74 MG/DL (0.60-1.30) 1.69 MG/DL (0.60-1.30) Random Glucose 112 MG/DL (74-106) Estimat Glomerular Filtration Rate 38 ML/MIN (>89) 39 ML/MIN (>89) Monocytes (%) (Auto) 8.1 % (0.0-8.0) Eosinophils # (Auto) 0.5 TH/MM3 (0-0.4) Imaging Last Impressions Lower Extremity Ultrasound 07/20/17 1531 Signed Impressions: Service Date/Time: Thursday, July 20, 2017 15:42 - CONCLUSION: Normal examination. Diffuse subcutaneous edema. Jose Maloney MD CT Angiography 07/20/17 1531 Signed Impressions: Service Date/Time: Thursday, July 20, 2017 16:21 - CONCLUSION: Small bilateral pleural effusions. Some reactive type lymph nodes within the right hilum. No evidence of pulmonary embolus with excellent opacification of the pulmonary vessels Jose Maloney MD Chest X-Ray 07/20/17 1359 Signed Impressions: Service Date/Time: Thursday, July 20, 2017 14:23 - CONCLUSION: Mild cardiomegaly status post CABG. Lungs are grossly clear. Jose Maloney MD PE at Discharge GENERAL: This is a well-nourished, well-developed patient, in no apparent distress. SKIN: Bilateral lower extremity stasis dermatitis. Cool and dry. CARDIOVASCULAR: Irregular rate, 2/6 murmurs No gallops, or rubs. RESPIRATORY: Decreased breath sounds GASTROINTESTINAL: Abdomen soft, non-tender, protuberant. Bowel sounds active 4. No guarding. MUSCULOSKELETAL: Extremities without clubbing, cyanosis. LLE +2 edema, RLE trace edema. No joint tenderness, effusion, or edema noted. No calf tenderness. NEUROLOGICAL: Awake and alert. Cranial nerves II through XII intact. Motor and sensory grossly within normal limits. Normal speech. Hospital Course Patient is an 82-year-old male with primary medical history of HTN, history of CA, CAD, CABG 3 who came into the hospital with increasing shortness of breath. CHF exacerbation, acute on chronic systolic and diastolic. Improving with good diuresis - Chest x-ray showed mild cardiomegaly status post CABG. - BNP 631 - CTA showed small bilateral pleural effusions. Some reactive type lymph nodes within the right ileum. No evidence of pulmonary embolus with excellent opacification of the pulmonary vessels - Lasix 40 mg QD - Doppler ultrasound showed negative DVT - Monitor I's and O's. Fluid restriction 1500ml - Follow up echocardiogram EF 40%. Consider restarting MERARI inhibitor if renal function improves Acute kidney injury possibly chronic kidney disease - Creatinine slightly better today - Avoid nephrotoxins - Monitor renal indices repeat BMP outpatient HTN CAD History of CABG - EKG shows with PVCs, no ST elevation - Troponin less than 0.02, CK-MB 3.7 - Resume home medications aspirin 81 mg daily, metoprolol 25 mg daily, atorvastatin 10 mg daily - Monitor BP trend DVT prop SCDs and subcutaneous heparin Pt Condition on Discharge: Stable Discharge Disposition: Disch w/ Home Health Serv Discharge Time: > 30 minutes Discharge Instructions DIET: Follow Instructions for: Heart Healthy Diet Activities you can perform: Regular-No Restrictions Activities to Avoid: Driving Follow up Referrals: PCP Follow-up - 1 Week New Orders: BASIC METABOLIC PROF - 07/25/17 New Medications: Furosemide (Lasix) 40 Mg Tab 40 MG PO DAILY for Prevent Heart Failure, #30 TAB 0 Refills Continued Medications: Aspirin (Aspirin) 81 Mg Chew 81 MG CHEW DAILY, TAB 0 Refills Atorvastatin (Lipitor) 10 Mg Tab 10 MG PO HS for Cholesterol Management, #30 TAB 0 Refills Coenzyme Q10 (Ubidecarenone) (Coq-10) 400 Mg Cap 200 DAILY Metoprolol Succinate ER 24 HR (Toprol XL) 25 Mg Tab 25 MG PO DAILY, #30 TAB 0 Refills Discontinued Medications: Aspirin DR (Aspirin 81) 81 Mg Tabdr 81 MG PO DAILY, TAB 0 Refills Metoprolol Succinate ER 24 HR (Metoprolol Succinate ER 24 HR) 50 Mg Tab 50 MG PO BID, #30 TAB 0 Refills Naproxen (Naproxen) 250 Mg Tab 250 MG PO DAILY, #60 TAB 0 Refills Miguel Parkinson MD Jul 24, 2017 10:18
[2017-07-24] MEDS ORDERED: PSYLLIUM FIBER SF/GF 6 GM POWD PKT PO SCH (10:45)
[2017-07-24 12:00] VITALS: BP_SYST 120; BP_SYST 128; BP_DIAS 68; BP_DIAS 83; PULSE 82; PULSE 96; RESP 20; TEMP 98.1; TEMP 98.5; O2SAT 100; O2SAT 95
--- NOTE | 2017-07-25 11:36 | ECHRPT ---
Indication: CONCLUSIONS The left ventricular systolic function is moderately reduced with an estimated ejection fraction in the range of 40-45%. Mild concentric left ventricular hypertrophy. Mildly dilated left ventricle. BP: / HR: 80 Rhythm: Other MEASUREMENTS (Male / Female) Normal Values Technical Quality:Fair 2D ECHO LV Diastolic Diameter PLAX 5.3 cm 4.2 - 5.9 / 3.9 - 5.3 cm LV Systolic Diameter PLAX 4.4 cm IVS Diastolic Thickness 1.3 cm 0.6 - 1.0 / 0.6 - 0.9 cm LVPW Diastolic Thickness 1.2 cm 0.6 - 1.0 / 0.6 - 0.9 cm LV Relative Wall Thickness 0.5 LVOT Diameter 2.3 cm M-MODE Aortic Root Diameter MM 3.0 cm LA Systolic Diameter MM 4.3 cm LA Ao Ratio MM 1.4 AV Cusp Separation MM 2.1 cm DOPPLER AV Peak Velocity 111.0 cm/s AV Peak Gradient 4.9 mmHg LVOT Peak Velocity 86.4 cm/s LVOT Peak Gradient 3.0 mmHg AV Area Cont Eq pk 3.2 cm Mitral E Point Velocity 86.9 cm/s Mitral A Point Velocity 117.0 cm/s Mitral E to A Ratio 0.7 LV E' Lateral Velocity 4.9 cm/s Mitral E to LV E' Lateral Ratio 17.8 PV Peak Velocity 106.0 cm/s PV Peak Gradient 4.5 mmHg FINDINGS LEFT VENTRICLE The left ventricular systolic function is moderately reduced with an estimated ejection fraction in the range of 40-45%. Mild concentric left ventricular hypertrophy. Mildly dilated left ventricle. RIGHT VENTRICLE Normal right ventricular size and systolic function. LEFT ATRIUM The left atrial size is normal. RIGHT ATRIUM The right atrial size is normal. ATRIAL SEPTUM Normal atrial septal thickness without atrial level shunting by limited color doppler interrogation. AORTA The aortic root and proximal ascending aorta are normal in size on limited imaging. MITRAL VALVE Structurally normal mitral valve. No mitral valve stenosis or regurgitation. AORTIC VALVE Trileaflet aortic valve. No aortic valve stenosis or regurgitation. TRICUSPID VALVE Structurally normal tricuspid valve. No tricuspid valve stenosis or regurgitation. PULMONARY VALVE Trivial pulmonary valve regurgitation. VESSELS The inferior vena cava is normal in size. PERICARDIUM No pericardial effusion. Jose Feliciano MD, FACC Edited by: [employer] CV Director Electrical Engineering (Electronically Signed) Final Date:22 July 2017 15:07 Amended: 25 July 2017 11:35
== END 2017-07-24 13:24 | disposition home health service (06) | DRG 292 ==
LOC: NEPC 13:37 → NEDA 17:09 → N04B 20:22
PROVIDERS: ADMIT Internal Medicine; ATTEND Internal Medicine
DX: I13.0 Hypertensive heart and chronic kidney disease with heart failure and stage 1 through stage 4 chronic kidney disease, or unspecified chronic kidney disease (principal); N17.9 Acute kidney failure, unspecified; I50.9 Heart failure, unspecified; Z95.1 Presence of aortocoronary bypass graft; I25.2 Old myocardial infarction; I25.10 Atherosclerotic heart disease of native coronary artery without angina pectoris; N40.0 Benign prostatic hyperplasia without lower urinary tract symptoms; M77.30 Calcaneal spur, unspecified foot; I49.3 Ventricular premature depolarization; Z79.82 Long term (current) use of aspirin; Z79.899 Other long term (current) drug therapy; Z87.891 Personal history of nicotine dependence; N18.9 Chronic kidney disease, unspecified
CPT/HCPCS: 71010; 71275; 80048; 80053; 82550; 82552; 83735; 83880; 84484; 85025; 85379; 85610; 85730; 87040; 93005; 93306; 93970; 94620; 96374; J1644; J1940; Q9967